=== PATIENT | female | born 1965 | race Two or more races ===

== ENCOUNTER → 2024-09-04 | Outpatient (CLI) | payer MEDICAID, SELFPAY ==
--- NOTE | 2024-09-04 10:00 | XR_ITS ---
Examination: Breast ultrasound, unilateral, right complete Date and time of exam: September 04, 2024 1038 hours INDICATIONS: Outside imaging mammogram May 13, 2024 13 mm focal asymmetry upper outer right breast anterior depth Technique: Real-time newton scale ultrasonographic imaging performed right breast including all 4 quadrants as well as nipple retroareolar and axillary region. Findings: Multiple right breast benign cysts, the largest in the 11:00 position 5 x 4 mm and adjacent cyst 5 x 4 mm as well as 11:00 position 7 x 6 mm No solid nodules IMPRESSION: BI-RADS Category 2: Benign findings
--- NOTE | 2024-09-04 10:30 | XR_ITS ---
Examination: Diagnostic digital mammography, unilateral, right Computer aided detection 3-D breast Tomosynthesis, unilateral Date and time of exam: September 04, 2020 4:11 AM INDICATIONS: Outside mammogram 06/02/2024 13 mm focal asymmetry upper outer quadrant right breast anterior depth Technique: Nonmagnified MLO, CC views of the right breast have been obtained, reconstructed from 3-D Tomosynthesis images. R2 computer aided detection program utilized for evaluation of suspicious masses and/or abnormal calcifications. 3-D Tomosynthesis images obtained. Findings: Scattered areas of fibroglandular density No suspicious masses depicted Impression: BI-RADS category 2: Benign findings Recommend yearly follow-up mammography
== END | disposition home or self-care (01) ==
PROVIDERS: PCP Nurse Practitioner Family; Referring Provider Nurse Practitioner Family; Visit Provider Nurse Practitioner Family
DX: R92.321 Mammographic fibroglandular density, right breast (principal); N64.89 Other specified disorders of breast
CPT/HCPCS: 76641; 77061; 77065; G0279